=== PATIENT | female | born 1940 ===

== ENCOUNTER 2018-03-07 08:47 | Emergency (ER) | payer MEDICARE ==
[2018-03-07 09:00] VITALS: BMI 43.5
[2018-03-07] MEDS ORDERED: Oxycodone/Acetaminophen 5/325 mg Tab PO STA (09:14)
--- NOTE | 2018-03-07 09:17 | ED PDOC ---
Arrival/HPI - General Chief Complaint: Upper Extremity Problem/Injury Time Seen by Provider: 03/07/18 09:01 Historian: Patient - History of Present Illness Narrative History of Present Illness (Text): 03/07/18 09:15 A 77 year old female, whose past medical history includes arthritis, gastritis, CAD, hypertension, hypercholesterolemia, and cholecystectomy, presents to the emergency department complaining of right arm injury/pain. Patient reports she fell at approximately 08:15, landing onto right arm. States she has no pain to wrist or elbow, however experiences the pain to the upper right arm region, and is unable to move right shoulder due to pain. Denies any other injuries. Patient has no other complaints at this time. PMD: Dr. Beryl Madden Time/Duration: Other (patient states she fell at approximately 08:15) Past Medical History - Provider Review Nursing Documentation Reviewed: Yes - Cardiac Hx Hypertension: Yes - Pulmonary Hx Respiratory Disorders: No - Neurological Hx Neurological Disorder: No - HEENT Hx HEENT Disorder: No - Renal Hx Renal Disorder: No - Endocrine/Metabolic Hx Endocrine Disorders: No - Hematological/Oncological Hx Blood Disorders: No - Integumentary Hx Dermatological Disorder: No - Musculoskeletal/Rheumatological Hx Arthritis: Yes - Gastrointestinal Hx Gastritis: Yes - Genitourinary/Gynecological Hx Genitourinary Disorders: No - Psychiatric Hx Psychophysiologic Disorder: No Hx Substance Use: No - Surgical History Hx Cholecystectomy: Yes - Anesthesia Hx Anesthesia: Yes Hx Anesthesia Reactions: No Hx Malignant Hyperthermia: No - Suicidal Assessment Feels Threatened In Home Enviroment: No Family/Social History - Physician Review Nursing Documentation Reviewed: Yes Family/Social History: No Known Family HX Smoking Status: Never Smoked Hx Alcohol Use: No Hx Substance Use: No Allergies/Home Meds Allergies/Adverse Reactions: Allergies No Known Allergies Allergy (Verified 11/06/17 14:44) Home Medications: Home Meds Medication Instructions Recorded Confirmed Propranolol [Inderal] 20 mg PO DAILY 05/25/17 03/07/18 Aspirin [Ecotrin] 81 mg PO DAILY 10/13/17 03/07/18 Atorvastatin [Lipitor] 10 mg PO HS 10/13/17 03/07/18 Pantoprazole [Protonix EC Tab] 40 mg PO DAILY 10/13/17 03/07/18 Losartan [Cozaar] 25 mg PO DAILY 11/06/17 03/07/18 Review of Systems - Physician Review All systems were reviewed & negative as marked: Yes - Review of Systems Constitutional: absent: Other (no other injuries.) Musculoskeletal: Other (right arm pain/injury s/p fall) Neurological: absent: Dizziness Physical Exam - Physical Exam Narrative Physical Exam (Text): Gen: VS reviewed, alert, well developed, well nourished, nontoxic, moderate distress secondary to right arm pain. ENT: normal pharynx. Eye: EOMI, PERRL. Neck: no JVD, supple, no adenopathy. CV: regular rate, regular rhythm, no rubs, no murmur, no gallops, S1, S2, pulses equal and strong. Pulm: no distress, clear to auscultation, no wheeze, no rhonchi, breath sounds equal, no rales. Abd: soft, nontender, no guarding, no rebound, no rigidity, normal bowel sounds. Ext: no edema, no deformity/bruising to right arm, significant loss of ROM to right shoulder secondary to pain, diffuse right upper arm tenderness. Skin: good color, no rash, no cyanosis. Psych: responds appropriately to questions, normal affect. Neuro: oriented x 3, CN2-12 intact grossly, motor intact, sensation intact. Vital Signs Reviewed: Yes Vital Signs Temp Pulse Resp BP Pulse Ox 03/07/18 09:00 97.7 F 64 16 148/66 98 Temperature: Afebrile Blood Pressure: Normal Pulse: Regular Respiratory Rate: Normal Appearance: Positive for: Well-Appearing, Non-Toxic, Comfortable Pain Distress: None Mental Status: Positive for: Alert and Oriented X 3 Medical Decision Making ED Course and Treatment: 03/07/18 09:18 Impression: 77 year old female with right arm injury/pain s/p fall. Physical exam shows patient is in moderate distress secondary to right arm pain, diffuse right upper arm tenderness, no deformity/bruising to arm, significant loss of ROM to right shoulder secondary to pain. Plan: -- Percocet -- Right Humerus X-Ray -- Right Shoulder X-Ray -- Arm Sling -- Reassess and disposition Prior Visits: Notes and results from previous visits were reviewed. Patient was last seen in the emergency department on 11/06/2017 for abdominal pain, nausea, vomiting, dysuria, hematuria and vaginal bleeding. Patient was discharged home. 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 patient is aware of current diagnosis and plan to reduce dislocation under sedation.at this time am awaiting call back from anesthesia for consultation. ASA class 3, mallampati score 4 patient has a hx of PE, had a biopsy performed at [facility] and stopped taking "blood thinner" since Jan 20 2018. NPO since 530 this morning, ate a hot pocket with water. Past medical history : hypertension and PE 03/07/18 11:[address] chaudhary, anesthesia, has requested bloodwork and ekg for screening and will get back with regards to procedure assistance 03/07/18 15:40 daughter in the Emergency department to assume care of the patient and go home. patient is awake and alert and stable for discharge. - RAD Interpretation Narrative RAD Interpretations (Text): 03/07/2018 11:02 Right Shoulder X-Ray IMPRESSION: Dislocation of the right shoulder. Dictator: Flaco Brody MD 03/07/2018 11:03 Right Humerus X-Ray IMPRESSION: Anterior inferior dislocation of the humeral head relative to the right glenoid. No visible fracture. Dictator: Flaco Brody MD - EKG Interpretation EKG Interpretation (Text): 03/07/18 12:52 1202: nsr at 68 bpm, nml qrs, nml axis, no acute sttw abn Interpreted by ED Physician: Yes - Scribe Statement The provider has reviewed the documentation as recorded by the Shahnaz Tanner Provider Scribe Attestation: All medical record entries made by the Tioibjudith were at my direction and personally dictated by me. I have reviewed the chart and agree that the record accurately reflects my personal performance of the history, physical exam, medical decision making, and the department course for this patient. I have also personally directed, reviewed, and agree with the discharge instructions and disposition. Disposition/Present on Arrival - Present on Arrival Any Indicators Present on Arrival: No History of DVT/PE: Yes History of Uncontrolled Diabetes: No Urinary Catheter: No History of Decub. Ulcer: No History Surgical Site Infection Following: None - Disposition Have Diagnosis and Disposition been Completed?: Yes Diagnosis: Accidental fall, Shoulder dislocation Disposition: HOME/ ROUTINE Disposition Time: 15:41 Patient Plan: Discharge Condition: STABLE Discharge Instructions (ExitCare): Shoulder Dislocation, Moderate Sedation in Adults (DC) Additional Instructions: Follow up with the orthopedic surgeon as soon as possible. KATJA MIN, thank you for letting us take care of you today. Your provider was Dr. Lucas Maloney and you were treated for right shoulder dislocation. The emergency medical care you received today was directed at your acute symptoms. If you were prescribed any medication, please fill it and take as directed. It may take several days for your symptoms to resolve. Return to the Emergency Department if your symptoms worsen, do not improve, or if you have any other problems. Please contact your doctor or call one of the physicians/clinics you have been referred to that are listed on the Patient Visit Information form that is included in your discharge packet. Bring any paperwork you were given at discharge with you along with any medications you are taking to your follow up visit. Our treatment cannot replace ongoing medical care by a primary care provider outside of the emergency department. Thank you for allowing the [facility] team to be part of your care today. If you had an X-Ray or CT scan: A Radiologist will review the ED reading if any change in treatment is needed we will contact you. If you had a blood, urine, or wound culture: It will take several days for the results, if any change in treatment is needed we will contact you. If you had an STI test: It will take 48 hours for the results. Please call after 1 week if you have not heard back. Referrals: Beryl Madden MD [Primary Care Provider] - Follow up with primary [facility] [Outside] - Follow up with primary Gil Stacy MD [Staff Provider] - Follow up with primary Forms: [employer] (Indonesian)
--- NOTE | 2018-03-07 11:06 | RAD ---
Date of service: 03/07/2018 PROCEDURE: Radiographs of the Right Shoulder HISTORY: fall, injury COMPARISON: Area FINDINGS: BONES: No visible fracture. JOINTS: Anterior inferior dislocation of the right humeral head relative to the glenoid. SOFT TISSUES: Normal. OTHER FINDINGS: None. IMPRESSION: Anterior inferior dislocation of the humeral head relative to the right glenoid. No visible fracture.
--- NOTE | 2018-03-07 11:07 | RAD ---
PROCEDURE: Radiographs of the right humerus. HISTORY: fall, injury COMPARISON: None. FINDINGS: BONES: Anterior inferior dislocation of the humerus relative to the glenoid. No visible fracture. SOFT TISSUES: Normal. OTHER FINDINGS: None. IMPRESSION: Dislocation of the right shoulder.
[2018-03-07] MEDS ORDERED: Morphine 4 mg/ml ISec IVP STA (11:39)
[2018-03-07 12:17] LABS: BASO # 0.02 K/mm3 (0.0-2.0); BASO % 0.2 % (0.0-3.0); EOS % 0.3 % (1.5-5.0); GRAN # 9.81 (1.4-6.5); GRAN % 83.5 % (50.0-68.0); HEMOGLOBIN 12.5 g/dL (12.0-16.0); LYMPH # 1.5 (1.2-3.4); LYMPH % 13.1 % (22.0-35.0); MEAN CELL VOLUME 85.8 fl (80.0-105.0); MEAN CORPUSCULAR HEMOGLOBIN 27.7 pg (25.0-35.0); MEAN CORPUSCULAR HGB CONC 32.3 g/dl (31.0-37.0); MEAN PLATELET VOLUME 12.1 fl (7.0-11.0); MONO # 0.3 (0.1-0.6); MONO % 2.9 % (1.0-6.0); RBC 4.51 10^6/uL (3.5-6.1); RED CELL DISTRIBUTION WIDTH 13.9 % (11.5-14.5); WHITE BLOOD COUNT 11.8 10^3/uL (4.5-11.0)
[2018-03-07 12:23] LABS: BLOOD UREA NITROGEN 20 mg/dL (7-21); CALCIUM 9.4 mg/dL (8.4-10.5); GFR NON-AFRICAN AMERICAN 54
[2018-03-07] MEDS ORDERED: Propofol 10 mg/ml Inj (20 ML) ONE (13:02)
--- NOTE | 2018-03-07 13:40 | RAD ---
Date of service: 03/07/2018 PROCEDURE: Radiographs of the Right Shoulder HISTORY: post reduction COMPARISON: No prior. FINDINGS: BONES: Normal. No fracture. JOINTS: Normal. Glenohumeral and acromioclavicular joints preserved. No osteoarthritis. SOFT TISSUES: Normal. OTHER FINDINGS: None. IMPRESSION: Successful reduction of dislocated shoulder.
--- NOTE | 2018-03-07 14:07 | CARD ---
APPROVED REPORT Date of service: 03/07/2018 EKG Measurement Heart [id number] <Conclusion> Normal sinus rhythm LAD Low voltage
[2018-03-07 14:53] VITALS: TEMP 98.1
[2018-03-07 15:53] VITALS: RESP 18; O2SAT 96
[2018-03-07 16:04] VITALS: BP 135/75; PULSE 71
== END 2018-03-07 15:53 | disposition home or self-care (01) ==
LOC: ED 08:47
DX: S43.014A Anterior dislocation of right humerus, initial encounter (principal); W01.0XXA Fall on same level from slipping, tripping and stumbling without subsequent striking against object, initial encounter; Y92.9 Unspecified place or not applicable
CPT/HCPCS: 23655; 73020; 73030; 73060; 80048; 85025; 93005; 96374; 99285; J2270; J2704